=== PATIENT | female | born 1975 | race Caucasian/White ===

== ENCOUNTER 2018-05-25 14:00 | Observation (INO) | payer OTHER, SELFPAY ==
[2018-05-25] VITALS (8 sets, daily range): BP systolic 101–132; BP diastolic 55–71; PULSE 78–97; RESP 16–20; TEMP 36.7–37.6; O2SAT 95–100; BMI 22.3
[2018-05-25 15:37] LABS: Anion Gap 8 (5-15); BUN 13 mg/dL (7-18); BUN/Creat Ratio 22.3 RATIO (10-20); Calcium,Total 8.6 mg/dL (8.5-10.1); Chloride 107 mmol/L (98-107); Creatinine, Serum 0.58 mg/dL (0.55-1.02); EST Glomerular Filtration Rate 119 mL/min (>60); Est Glom Filt Rate - Afr Amer 144 mL/min (>60); Estimated Creatinine Clearance 106.89 ml/min; Glucose 86 mg/dL (74-106); Potassium 3.7 mmol/L (3.5-5.1); Sodium Level 137 mmol/L (136-145)
[2018-05-25] MEDS: Lactated Ringers 1,000 ML 100 ML IV (16:20)
[2018-05-25] MEDS: DiphenhydrAMINE 50 MG/ML Syringe IV (17:36)
--- NOTE | 2018-05-25 18:01 | HP.PCM_ITS ---
- Problem List (1) Menorrhagia Status: Acute (2) Fibroid uterus Status: Chronic Qualifiers: Uterine leiomyoma location: intramural, submucous, and subserous Qualified Code(s): D25.1 - Intramural leiomyoma of uterus; D25.0 - Submucous leiomyoma of uterus; D25.2 - Subserosal leiomyoma of uterus (3) Chronic blood loss anemia Status: Chronic History and Physical Date of Admission: 05/25/18 Date: 05/25/2018 Name: TYLER CALDERON Age: 43 Date of : 1975 HISTORY OF PRESENT ILLNESS: On 05/25/2018, Tyler Calderon, a 43 year old female 1 0 1 1 2, presented for: -- US [employer] -- Tyler is here for evaluation of irregular and heavy bleeding. She noted more bleeding with menses being longer, irregular, and heavy in January. Started feeling much worse 3 weeks ago and made appt for evaluation. Saw PCP yesterday and Hgb 6.0 g/dl. Started a chelated iron 18 mg tablet once daily approx 1 month ago. Encouraged to increase that to bid at minimum. Discussed may get offered transfusion and hysterectomy. Will discuss all further with Dr Marino. LMT -- Heavy menses which began approx 1 year. Tyler claims it started in January and has been present for 5 months. It is located in the uterus. Severity is mild. An associated sign and symptom is severe anemia. As above. Here for pelvic sono and evaluation. She has had heavy bleeding and irregular periods since January 2018. Had scheduled appt for tomorrow to discuss Robotic hysterectomy, but here today as work in for ultrasound and to arrange for blood transfusion as PCP ordered labs earlier this week and her Hgb is 6 g/dl. Estradiol and progesterone both premenopausal. She had not had any PROFESSIONAL [employer]ER[employer] evaluation for years. NO recent sono but today's. She is not on any medications. Prior h/o vaginal delivery of twins-- 5- 5 1/2 # each. No pelvic or abdominal surgeries. Sono results reviewed as below: Advised hysterectomy. UTERUS: 14.8 x 8.5 x 13 cm with multiple fibroids seen. 1)4.9 x 6.6 x 6.6cm 2)6.7 x 4.2 x 4.4cm 3) 5.6 x 5 x 3cm and 5.8 x 7.2 x 6.3cm. ENDOMETRIAL ECHO: 35 mm. irregular echoes seen within. thick and irregular endo RIGHT OVARY: not seen. LEFT OVARY: 4.1 x 3.8 x 3.5cm. simple cyst seen measures 3.6 x 3 x 3cm. FREE FLUID: NONE. IMPRESSION/PLAN fibroids seen in uterus, thickened endometrium blood seen in endo. irregular echotexture seen in uterus and enlarged uterus. limited views of uterus due to enlarged fibroids. clusters of old blood seen throughout uterus. EB ALLERGIES: Sudafed and Tachycardia MEDICATIONS HISTORY: None REVIEW OF SYSTEMS: GENERAL - Denies fever, or chills SKIN - Denies skin changes EYES - Denies visual changes EARS - Denies difficulty hearing NOSE - Denies nasal congestion or bleeding MOUTH - Denies sore throat or difficulty swallowing NECK - Denies pain or swelling RESPIRATORY - Denies shortness of breath or wheezing CARDIOVASCULAR - Denies palpitations or chest pain GASTROINTESTINAL - Denies nausea, vomiting, diarrhea, constipation GENITOURINARY - heavy menses MUSCULOSKELETAL - Denies joint or muscle pain NEUROLOGICAL - Denies localized numbness or weakness PSYCHIATRIC - Denies depression or anxiety ENDOCRINE - Denies heat or cold intolerance, weight loss or gain HEMATO-IMMUNOLOGIC - Denies excesive bleeding with cuts PAST HISTORY: Breast/Ovarian/Colon Cancers - Denies Infections - Chicken pox Illnesses - no serious past illnesses Accidents - no injuries of consequence History of Abnormal PAPS - Denies Hospitalizations - see surgery SURGICAL HISTORY: 1. 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 HEENT - Normocephalic, PERRLA, EOMI NECK - no nodes, no nuchal rigidity and thyroid normal size and texture ABDOMEN - Palpable mutinodular uterus, somewhat mobile. not fixed in pelvis EXTREMITIES - No edema or calf tenderness NEUROLOGICAL - Cranial nerves II-XII grossly intact PSYCHIATRIC - A and O to time, place, person, mood and affect DETAILED PELVIC EXAM External Genitial Vagina - non-tender without lesions Urethra/Urethral Meatus - non-tender Bladder - non-tender Vagina - vaginal arevalo are pink and moist without loss of rugae and no evidence of atropy Cervix - gr 2 prolapse. and minimal bleeding at present. Uterus - enlarged with multiple palpable nodularities noted. Pedunculated fibroids serosal fibroids. 15-16 cm size on exam. Somewhat limited mobility Adnexa - clear without massess or tenderness Pap - deferred ASSESSMENT: 1. Leiomyoma Of Uterus, Unspecified 2. Iron Deficiency Anemia Secondary To Blood Loss (chronic) 3. Excessive Bleeding In The Premenopausal Period PLAN BY DIAGNOSIS: 1. Excessive Bleeding In The Premenopausal Period and Iron Deficiency Anemia Secondary To Blood Loss (chronic) Hgb at outside facility 6 g/dl. Advised blood transfusion and to be admitted today to [facility] for this and overnight observation. Plan 4 unit transfusion to hgb goal prior to surgery of 10 g/dl. May continue iron and will inc to bid. The visit was approximately 25 minutes in length with most of the time spent in discussion and counseling. 2. Leiomyoma Of Uterus, Unspecified Mutiple fibroids noted Advised that the endometrium is very thickened also with areas of blood. Less likely a malignancy given body habitus, but endometrium thickness potentially due to blood within the endometrium, clots. Advised hysterectomy. Cervix with slight prolapse noted. Due to shape of uterus recommend LAVH, and Bilateral salpingectomy Advised potential need for open procedure, ODALYS. Declines bilateral oophorectomy. Prefers to maintain ovaries. Reviewed R,B,A and discussed anticipated preop, operative and postop recovery including activity restrictions. All questions answered. Will schedule surgery for later this week, after blood transfusion today and over night hospital stay for this transfusion.
[2018-05-25] MEDS: Ferrous Sulfate 325 MG Tablet PO (18:23)
[2018-05-26] VITALS (10 sets, daily range): BP systolic 105–128; BP diastolic 62–79; PULSE 71–86; RESP 14–18; TEMP 36.8–37.3; O2SAT 95–100
--- NOTE | 2018-05-26 07:54 | PCM.PROGNOTE ---
Patient Problems: Active and Suspected Problems Menorrhagia (Acute) Subjective: HD#2 Chronic blood loss anemia, Fibroid uterus Doing OK. Poor sleep overnight with protocol for blood. On 4th unit now. Asking about timing of hysterectomy Two pads used overnight. No heavy bleeding. Tolerating blood well. Objective: Sitting up in bed, ready for coloring book activity - Physical Exam General: Alert, Oriented x3, Cooperative, No apparent distress HEENT: Atraumatic Neck: Supple Neurological: Cranial nerves II-XII grossly intact Psych/Mental Status: Normal Affect Vital Signs Temp Pulse Resp BP Pulse Ox 99.1 F 86 18 105/72 99 05/26/18 06:35 05/26/18 06:35 05/26/18 06:35 05/26/18 06:35 05/26/18 06:35 Oxygen Delivery Method Room Air Weight: 58.922 kg Body Mass Index (BMI) 22.3 Intake and Output for Last 24 Hours 05/24/18 05/25/18 05/26/18 23:59 23:59 23:59 Intake Total 550 / 550 4450 / 4450 Output Total 650 / 650 1100 / 1100 Balance -100 / -100 3350 / 3350 Laboratory Tests Past 24 Hrs 05/25/18 05/25/18 14:54 14:54 Sodium 137 Potassium 3.7 Chloride 107 Carbon Dioxide 22.0 Anion Gap 8 BUN 13 Creatinine 0.58 Estim Creat Clear Calc 106.89 Est GFR (MDRD) Af Amer 144 Est GFR (MDRD) Non-Af 119 BUN/Creatinine Ratio 22.3 H Glucose 86 Calcium 8.6 Blood Type A POSITIVE Antibody Screen NEGATIVE Crossmatch See Detail Medical Necessity - Tobacco Use Smoking Status: Never smoker Assessment/Plan All Active Problems Menorrhagia (Acute) HD#2 Overnight observation 2/2 chronic blood loss anemia Transfusion of 4 units pRBCs in prep for hysterectomy CBC planned apprx 4 h p 4th unit LAVH, bilateral salpingectomy planned for Thursday am Reviewed R,B,A of this surgery. Leaving ovaries in place. Potential for ODALYS also reviewed. Plan dischg home after CBC today , if stable, with surgery planned on Thursday.
--- NOTE | 2018-05-26 07:58 | PCM.DC ---
- Discharge Diagnoses Current Active Problems: Current Active and Chronic Problems Menorrhagia (Acute) Fibroid uterus (Chronic) Chronic blood loss anemia (Chronic) You will use the following diet at home:: No restrictions Discharge Activity: May Shower, May Take a Tub Bath May resume sexual activity in: No Restrictions Call your doctor if you observe: Fever of 101 or Higher, Using more than one pad per hour Allergies/Adverse Reactions: Allergies pseudoephedrine Adverse Reaction (Verified 05/25/18 14:19) heart races Medications to take at Discharge Calcium Citrate/Magnesium/D3 [Calcium Citrate Chewable Wafer] 1 each PO DAILY 05/25/18 Chelated Iron 18 mg PO DAILY 05/25/18 Fish Oil/Borage/Flax/Om3,6,9#1 [[place] 3-6-9 Complex Softgel] 400 mg PO DAILY 05/25/18 Multivitamin [Multiple Vitamins] 1 each PO DAILY 05/25/18 Vitamin B Complex 1 each PO DAILY 05/25/18 Primary Care Physician: Felipe Wilson [Primary Care Provider] - Test Results: Test results from this visit will be discussed in further detail at your follow-up appointment, if applicable. Please Follow Up With: Low Jolly MD When: Thursday am as planned at [facility] for surgery. Proposed Discharge Date: 05/26/18
[2018-05-26] MEDS: Ferrous Sulfate 325 MG Tablet PO (08:53)
[2018-05-26] MEDS: Multivitamins,Therapeutic Tablet 1 TABLET PO (08:53)
[2018-05-26 12:38] LABS: Absolute Lymphocyte Count 1.42 X10^3/ul (0.83-4.51); Absolute Neutrophil Count 4.5 X10^3/uL (2.0-7.7); Basophil# 0.04 X10^3/uL; Basophil% 0.6 % (0-1); Eosinophil# 0.05 X10^3/uL; Eosinophils% 0.8 % (0-5); Hematocrit 38.9 % (37-47); Hemoglobin 11.4 g/dl (12.0-15.0); Lymphocyte # 1.42 X10^3/ul (4.0); Lymphocyte % 21.4 % (19-41); Mean Corp Hgb Conc 29.3 g/gl (32-36); Mean Corpuscular Hgb 22.8 pg (27.0-32.0); Mean Corpuscular Volume 77.8 fL (81-99); Mean Platelet Vol. 11.6 fl (6.2-12.0); Monocyte# 0.59 X10^3/uL; Monocyte% 8.9 % (0-10); Neutrophil # 4.53 X10^3/uL (2.7-7.7); Neutrophil % 68.1 % (47-70); POSITIVE COUNT NO; POSITIVE DIFFERENTIAL NO; POSITIVE MORPHOLOGY NO; Platelet Count 280 K/mm3 (150-450); RBC Distribution Width CV 17.5 % (11.6-14.6); RBC Distribution Width SD 48.2 fl (35.1-43.9); White Blood Count 6.6 K/mm3 (4.4-11.0)
== END 2018-05-26 15:48 | disposition home or self-care (01) ==
PROVIDERS: Admitting Provider Obstetrics & Gynecology; Family Provider Preventive Medicine Public Health & General Preventive Medicine; PCP Preventive Medicine Public Health & General Preventive Medicine; Referring Provider Obstetrics & Gynecology; Visit Provider Obstetrics & Gynecology
DX: N92.1 Excessive and frequent menstruation with irregular cycle (principal); D25.1 Intramural leiomyoma of uterus; D25.0 Submucous leiomyoma of uterus; D25.2 Subserosal leiomyoma of uterus; D50.0 Iron deficiency anemia secondary to blood loss (chronic)
CPT/HCPCS: 36415; 36430; 80048; 85025; 86850; 86900; 86920; 86922; 96360; 96361; 99218; J7040; J7120; P9016; A4216; G0378; G0379

== ENCOUNTER 2018-05-28 11:42 | Inpatient (IN) | payer OTHER, SELFPAY ==
--- NOTE | 2018-05-27 17:09 | HP.PCM_ITS ---
History and Physical Date of Admission: 05/28/18 Surgical History and Physical Debra Doyle, a 43 year old female 1 0 1 1 2, presents for LAVH, bilateral salpingectomy on 05/28/18 at 0930. -- Multiple Uterine Fibroids; Blood Loss Anemia -- Irregular and heavy bleeding. She noted more bleeding with menses being longer, irregular, and heavy in January. Started feeling much worse 3 weeks ago and made appt for evaluation. Saw PCP and Hgb 6.0. Started a chelated iron 18 mg tablet once daily approx 1 month ago. Encouraged to increase that to bid at minimum. After transfusion earlier this week Hgb up to 11+ with 4 units P-RBC. UTERUS: 14.8 x 8.5 x 13cm. multiple fibroids seen. 1)4.9 x 6.6 x 6.6cm 2)6.7 x 4.2 x 4.4cm 3) 5.6 x 5 x 3cm and 5.8 x 7.2 x 6.3cm. Heavy menses which began approx 1 year. Debra claims it started in January and has been present for 5 months. It is located in the uterus. Severity is mild; Associated signs and symptoms are severe anemia. MEDICATIONS HISTORY: ALLERGIES: Pseudopherin, Increased heart rate, Sudafed and Tachycardia Infections - Chicken pox Illnesses - no serious past illnesses Accidents - no injuries of consequence Hospitalizations - see surgery Review of Systems: GENERAL - Denies fever, or chills SKIN - Denies skin changes EYES - Denies visual changes EARS - Denies difficulty hearing NOSE - Denies nasal congestion or bleeding MOUTH - Denies sore throat or difficulty swallowing NECK - Denies pain or swelling RESPIRATORY - Denies shortness of breath or wheezing CARDIOVASCULAR - Denies palpitations or chest pain GASTROINTESTINAL - Denies nausea, vomiting, diarrhea, constipation GENITOURINARY - heavy menses MUSCULOSKELETAL - Denies joint or muscle pain NEUROLOGICAL - Denies localized numbness or weakness PSYCHIATRIC - Denies depression or anxiety ENDOCRINE - Denies heat or cold intolerance, weight loss or gain HEMATO-IMMUNOLOGIC - Denies excesive bleeding with cuts SOCIAL HISTORY: Alcohol Use - denies drinking Smoking - denies smoking Diet - balanced Diet Lifestyle - Exercise - minimal Seat Belt Use - always 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 none PHYSICAL EXAM BP- 144/72 Sitting, Right arm, regular cuff Weight- 129.35889 lbs Height- 64 inch BMI:22.19 CONSTITUTIONAL - well nourished, well developed and Extremely pale appearing. HEENT - Normocephalic, PERRLA, EOMI NECK - no nodes, no nuchal rigidity and thyroid normal size and texture ABDOMEN - Palpable mutinodular uterus, somewhat mobile. not fixed in pelvis EXTREMITIES - No edema or calf tenderness NEUROLOGICAL - Cranial nerves II-XII grossly intact PSYCHIATRIC - A and O to time, place, person, mood and affect External Genitial Vagina - non-tender without lesions Urethra/Urethral Meatus - non-tender Bladder - non-tender Vagina - vaginal arevalo are pink and moist without loss of rugae and no evidence of atropy Cervix - gr 2 prolapse. and minimal bleeding at present. Uterus - enlarged with multiple palpable nodularities noted. Pedunculated fibroids serosal fibroids. 15-16 cm size on exam. Somewhat limited mobility Adnexa - clear without massess or tenderness Pap - deferred ASSESSMENT/PLAN: 1. Excessive Bleeding In The Premenopausal Period and Iron Deficiency Anemia Secondary To Blood Loss (chronic) Hgb at outside facility 6 g/dl. Advised blood transfusion and was admitted to [facility] for this and overnight observation. 4 unit transfusion to hgb goal prior to surgery of 10 g/dl. Continue iron and will inc to bid. 2. Leiomyoma Of Uterus, Unspecified Mutiple fibroids noted Advised hysterectomy. Cervix with slight prolapse noted. Due to shape of uterus , recommend trial of LAVH, Bilateral salpingectomy Advised potential need for open, ODALYS. Declines bilateral oophorectomy. Prefers to maintain ovaries. Reviewed R,B,A and discussed anticipated preop, operative and postop recovery including activity restrictions. All questions answered.
[2018-05-28] VITALS (13 sets, daily range): BP systolic 105–140; BP diastolic 60–83; PULSE 50–80; RESP 11–16; TEMP 36.3–38.2; O2SAT 100; BMI 21.2; BMI 22.6
--- NOTE | 2018-05-28 | HYST_PTH ---
PATIENT: TYLER CALDERON LOC: MS3 U#:[id number] AGE/SX: 43/F ROOM: MS320 RE05/28/[address]: Dr. Low Jolly MD : 1975 BED: 1 DIS: 05/30/2018 SPEC #: [id number] RECD: 05/28/18 14:30 STATUS: TAVON REQ #: [id number] RAY: 05/28/18 00:[address]: Low Jolly DEPT: SURGICAL PATHOLOGY RECD BY: Zain Johnson ENTERED: 05/28/18 14:30 SP TYPE: HYSTERECT OTHR DR: Dr. Felipe Wilson MD Tissues: Uterus, NOS Procedures: Surgery Specimen Level V HEADER OPERATION: Attempted lap assisted vaginal hysterectomy, bilateral salpingo-oophorectomy PRE-OP DIAGNOSIS: Excessive bleeding in premenopausal period, leiomyoma of uterus TISSUE SUBMITTED: Uterus and bilateral fallopian tubes MICROSCOPIC DIAGNOSIS Uterus, bilateral fallopian tubes and ovaries, vaginal hysterectomy and bilateral salpingo-oophorectomy: Cervix - acute and chronic cystic cervicitis. Endometrium - secretory endometrium. Myometrium - intramural, submucosal and subserosal leiomyomas (largest measuring 7 cm in greatest dimension). - Focal subserosal adenomyosis. Bilateral fallopian tubes and ovaries - endometriosis. - Physiologic follicular and hemorrhagic corpus luteum cysts. SJ:kathia 05/31/18 COMMENT Detached piece of tissue is consistent with hemorrhagic corpus luteum cyst and shows focal area of endometriosis. MICROSCOPIC DESCRIPTION Slides are reviewed. GROSS DESCRIPTION Received in fixative is one container labeled with the patient's name and designated uterus and bilateral fallopian tubes. The specimen consists of a hysterectomy specimen consisting of uterus with cervix, detached bilateral fallopian tubes and possible ovaries. The uterus with cervix weighs 1223 gm. The uterus is markedly distorted due to the presence of nodular masses. The uterus with cervix measures from fundus to cervix 18 cm, 23 cm between two cornu and 12 cm anterior-posteriorly. The serosal surface is hughes, glistening. The ectocervical mucosa is focally congested. The external os is oval and patulous in contour. The endocervical canal measures 3.5 cm in length and the endocervical mucosa is hughes, glistening and unremarkable. The endocervical mucosa is filled with liquified and clotted blood. The endometrial cavity is saucer shaped and distorted and compressed to one side and measures 9 cm in length and up to 8 cm in width. The endometrium is hughes, glistening without any mass lesion and measures up to 0.2 cm in thickness. Sections of the uterine wall reveal multiple intramural, submucosal and subserosal nodular masses. The largest mass measures 7 cm in greatest dimension. Sections of these masses reveal hughes whorled cut surfaces without areas of hemorrhage, necrosis or cystic degeneration. The uninvolved uterine wall measures up to 3 cm in thickness. The detached fallopian tube and ovary are not identified as right or left. The fallopian tube measures 5 cm in length and up to 1.5 cm in diameter. The fimbrial end is not identified. One of the fallopian tubes reveal multiloculated cut surfaces. The adjacent possible ovary measures 5 x 3 x 2 cm. Sections reveal a hemorrhagic cyst measuring 1.5 cm in greatest dimension. Additional cysts are also noted filled with clear fluid. The second fallopian tube and ovary is disrupted and no well-defined fallopian tube or ovary could be identified. The entire tubo-ovarian tissue measures 6 x 4.5 x 2 cm. The fimbrial end is not identified. Sections do not reveal any obvious mass lesion. Also present in the container is a detached piece of hughes soft tissue measuring 1.5 x 2 x 0.7 cm. Food Specialist sections are submitted in 18 cassettes as follows: 1 & 2 - cervix, 3-6 - uterine wall including endometrium, 7 - largest nodular mass, 8 - second largest nodular mass, 9 - third largest nodular mass, 10 & 11 - possible one fallopian tube, 12 & 13 - possible adjacent ovary, 14-17 - second fallopian tube and ovary, 18 - detached piece of tissue. / Tejal 05/28/18 TC: 1 CPT: 27880
[2018-05-28 08:33] LABS: Internal QC Validated? YES +Cl - CLEAR BKGD; Pregnancy, Urine Negative Negative
[2018-05-28 08:52] LABS: Prothrombin Time (Protime)PT. 13.5 SECONDS (11.7-14.9)
[2018-05-28 08:53] LABS: Partial Thromboplast Time 26.4 Seconds (24.1-36.2)
[2018-05-28 08:55] LABS: Hematocrit 40.5 % (37-47); Hemoglobin 11.5 g/dl (12.0-15.0)
[2018-05-28] MEDS: Ropivacaine 0.5% 30 ML Vial (11:43)
--- NOTE | 2018-05-28 11:54 | OP.PCM_ITS ---
Operative Report Date of Procedure: 05/28/18 Surgeon: Low Jolly MD, [facility] OG Shift Production Associate: KARL Saba; KARL Alva Anesthesia: Elena Gibbs CRNA Type of anesthesia: General endotracheal Procedure: Attempted Laparoscopic-Assisted Vaginal Hysterectomy Bilateral Salpingectomy converted to Total Abdominal Hysterectomy, Bilateral Salpingo- Oophorectomy and Lysis of Adhesions Findings: 15 cm cm fibroid uterus with approximately 5-6 cm hydrosalpinx and 4 cm endometrioma/tubo-ovarian complex each adnexa. Adhesion of rectosigmoid to left tubo-ovarian complex. Indications: This is a 43-year-old 2 para 2 who his been having problems with extremely heavy periods. Her hemoglobin was noted to be 6.0 before being transfused with 4 units of packed red blood cells earlier this week. Extremely large uterine fibroids were noted. Given this the patient desires that we proceed with the above procedure. She has been counseled regarding the risk and indications of this procedure including the possibility of bleeding, infection, and injury to surrounding structures such as bowel bladder. She also understands that the procedure may need to be converted to open if unable to proceed laparoscopically. She desires ovarian preservation if ovaries appear normal. All questions were answered. Procedure: Patient was taken to the operating room where after induction of general anesthesia she was placed in the dorsal lithotomy position and prepped and draped in the usual sterile fashion. A Andino catheter was placed. Anterior cervix was grasped with a tenaculum and anterior cervix circumscribed with cautery on a setting of 35 W coagulation. Anterior vaginal mucosa was undermined and a 4 x 4 raytec sponge was placed to identify the peritoneal reflection of the bladder intraperitoneally. Conn cannula was placed and attention was turned towards the laparoscopic portion of the procedure. Approximately 10 cc of half percent ropivacaine was injected 2 cm above the umbilicus and 3 cm below the umbilicus. A 5 mm bladeless trocar was introduced 2 cm above the umbilicus and intraperitoneal placement confirmed. CO2 insufflation was completed, and, under direct visualization, a 5 mm bladeless trocar was introduced just below the umbilicus. The above findings were noted and because of the recto-sigmoid adhesions, large fibroids, and bilateral adnexal masses it was decided to proceed with open procedure. Patient was undraped and vaginal instruments were removed; patient was prepped and draped in usual sterile fashion after removing her from the dorsal lithotomy position. The 2 previous 5 mm ports were removed and a Pfannenstiel incision was made after closing the 2 ports with 4-0 monocryl suture in an interrupted fashion and covering with Steri-Strips. Upon entering the abdomen it was not possible to place the [place] retractor so uterus was brought through the incision to the upper field from the pelvis and round ligaments were identified and ligated with 0 Vicryl suture. Progressive bites were then taken down on either side of the uterine cervix ligating each pedicle with 0 Vicryl suture. The fallopian tubes and ovaries were left in place at this portion of the procedure. After removing the uterus from the vaginal cuff the angles were closed with Royal sutures using 0 Vicryl suture and multiple [id number] sutures using 0 Vicryl suture was placed across the vaginal cuff. Vaginal cuff and pelvic sidewall pedicles were oversewn where necessary to achieve hemostasis. Attention was turned toward removing the tubo-ovarian complexes. Using blunt and sharp dissection the fallopian tubes and ovaries were freed from the pelvic sidewall and the infundibulopelvic ligaments were ligated x2 with 0 Vicryl suture. Similar procedure was carried out on each side but on the right but the ovary was noted to be buried behind the peritoneum. This was removed with blunt dissection and after removal peristalsis of the right ureter was noted. FloSeal 5 cc was used to help with hemostasis after copiously irrigating the pelvis with saline. Tammy retractor was removed and rectus abdominis muscles were reapproximated in the midline with interrupted 0 Vicryl suture. 0 PDS strata fix was used to close the fascia in a running fashion and subcutaneous tissue was copiously irrigated with saline solution before closing with 3-0 Vicryl suture. 3-0 Monocryl suture was then used in running fashion to reapproximate skin edges area and Steri-Strips placed across the incision. Patient tolerated the procedure well was taken to recovery room in satisfactory condition; sponge instrument and needle counts were all reportedly correct. Estimated blood loss for the case was 400 cc. Cefotan 2 g IV was given prior to beginning the operative procedure. There were no apparent complications of the surgery. Specimen to pathology was uterus and bilateral fallopian tubes and ovaries.
--- NOTE | 2018-05-28 13:22 | PCM.DC.AHY ---
Discharge Diet: No Restrictions Discharge Activity: Return to Normal Activity - do what you feel comfortable, but do not over do it. You may climb stairs, just use caution and hold the railing., May Not Drive - for a few days or while taking narcotic pain medications., May Shower, May Take a Tub Bath May resume sexual activity in: 6 weeks - nothing in the vagina. Lifting Restrictions: 25 pounds for 6 weeks. Call your doctor if your incision/area has: Continuous Slow Oozing, Sudden Increased Bleeding, Increased Pain/ Swelling, Increased Redness, Foul Smelling Discharge Call your doctor if you observe: Fever of 101 or Higher, Inability to urinate, Inability to have a bowel movement, Using more than one pad per hour, - - Some vaginal bleeding may be noted for up to 4-8 weeks. Cleanse incision/area with: - - Let the soapy water run over your incision, rinse and pat dry. Additional Dressing/Incision Instructions:: The white strips (Steri Strips) on your incision will fall off on their own. Allergies/Adverse Reactions: Allergies pseudoephedrine Adverse Reaction (Verified 05/27/18 10:36) heart races Medications to take at Discharge Calcium Citrate/Magnesium/D3 [Calcium Citrate Chewable Wafer] 1 each PO DAILY 05/25/18 Chelated Iron 18 mg PO DAILY 05/25/18 Fish Oil/Borage/Flax/Om3,6,9#1 [[place] 3-6-9 Complex Softgel] 400 mg PO DAILY 05/25/18 Multivitamin [Multiple Vitamins] 1 each PO DAILY 05/25/18 Vitamin B Complex 1 each PO DAILY 05/25/18 Docusate Sodium [Colace] 100 mg PO BID PRN PRN #60 cap 05/28/18 Estradiol 1 mg PO DAILY #100 tab 05/28/18 Oxycodone [Oxyir] 5 mg PO Q6H PRN PRN 7 Days #20 tab 05/28/18 The following prescriptions were given: Oxycodone [Oxyir] 5 mg PO Q6H PRN PRN 7 Days #20 tab PRN Reason: Severe Pain (-05/12) Docusate Sodium [Colace] 100 mg PO BID PRN PRN #60 cap PRN Reason: Constipation Estradiol 1 mg PO DAILY #100 tab Primary Care Physician: Felipe Wilson [Primary Care Provider] - Test Results: Test results from this visit will be discussed in further detail at your follow-up appointment, if applicable. Please Follow Up With: Low Jolly MD - [phone] When: in 2 weeks, please call to make an appointment.
[2018-05-28] MEDS: Ketorolac 30 MG/ML Syringe IV ×2 (13:46→19:02)
[2018-05-28] MEDS: Lactated Ringers 1,000 ML 125 ML IV ×2 (13:48→21:33)
[2018-05-28] MEDS: 0.9% NaCl Peripheral Flush Adult/Peds IV ×2 (17:02→19:02)
[2018-05-28] MEDS: HYDROmorphone 0.5 MG/0.5 ML SYRINGE IV ×2 (17:03→22:56)
[2018-05-28] MEDS: Enoxaparin 30 MG/0.3 ML Syringe SC (19:02)
[2018-05-28] MEDS: oxyCODONE 5 MG Tablet PO (20:15)
[2018-05-28] MEDS: Ondansetron 4 MG/2 ML Vial IV (21:29)
[2018-05-29] VITALS (9 sets, daily range): BP systolic 90–119; BP diastolic 52–80; PULSE 55–89; RESP 16–18; TEMP 36.3–37.5; O2SAT 97–100
[2018-05-29] MEDS: Ketorolac 30 MG/ML Syringe IV ×5 (00:15→23:53)
[2018-05-29] MEDS: oxyCODONE 5 MG Tablet PO ×3 (02:23→19:44)
[2018-05-29] MEDS: Lactated Ringers 1,000 ML 125 ML IV (05:53)
[2018-05-29 07:27] LABS: Creatinine, Serum 0.79 mg/dL (0.55-1.02); EST Glomerular Filtration Rate 84 mL/min (>60); Est Glom Filt Rate - Afr Amer 102 mL/min (>60); Estimated Creatinine Clearance 85.07 ml/min
[2018-05-29 08:22] LABS: Hematocrit 33.2 % (37-47); Hemoglobin 9.4 g/dl (12.0-15.0); Mean Corp Hgb Conc 28.3 g/gl (32-36); Mean Corpuscular Hgb 22.5 pg (27.0-32.0); Mean Corpuscular Volume 79.4 fL (81-99); Mean Platelet Vol. 11.7 fl (6.2-12.0); Platelet Count 214 K/mm3 (150-450); RBC Distribution Width CV 19.6 % (11.6-14.6); RBC Distribution Width SD 55.6 fl (35.1-43.9); Red Blood Count 4.18 M/mm3 (4.2-5.4); Scan Indicated on CBC? Y/N YES- FLAGS NOTED; White Blood Count 9.2 K/mm3 (4.4-11.0)
--- NOTE | 2018-05-29 08:40 | PCM.PN.OB ---
Subjective: Patient without complaints. Tolerating diet well. Denies flatus. Pain well controlled. Would like to go home later today if able. - Physical Exam Vital Signs AF, VSS Temp Pulse Resp BP Pulse Ox 97.4 F L 77 16 119/66 100 05/29/18 02:07 05/29/18 02:15 05/29/18 02:07 05/29/18 02:07 05/29/18 02:07 Oxygen Flow Rate (L/min) 1 Oxygen Delivery Method Nasal Cannula Weight: 140 lb Body Mass Index (BMI) 22.6 Intake and Output for Last 24 Hours 05/27/18 05/28/18 05/29/18 23:59 23:59 23:59 Intake Total 2892 / 2892 2228 / 2228 Output Total 420 / 420 1355 / 1355 Balance 2472 / 2472 873 / 873 Laboratory Tests Past 24 Hrs 05/28/18 05/28/18 05/28/18 08:30 08:30 08:30 WBC RBC Hgb 11.5 L Hct 40.5 MCV MCH MCHC RDW RDW Differential Plt Count MPV PT 13.5 INR 1.0 APTT 26.4 Creatinine Estim Creat Clear Calc Est GFR (MDRD) Af Amer Est GFR (MDRD) Non-Af Blood Type A POSITIVE Antibody Screen NEGATIVE 05/29/18 05/29/18 06:47 06:47 WBC 9.2 RBC 4.18 L Hgb 9.4 L Hct 33.2 L MCV 79.4 L MCH 22.5 L MCHC 28.3 L RDW 19.6 H RDW Differential 55.6 H Plt Count 214 MPV 11.7 PT INR APTT Creatinine 0.79 Estim Creat Clear Calc 85.07 Est GFR (MDRD) Af Amer 102 Est GFR (MDRD) Non-Af 84 Blood Type Antibody Screen Wound is clean, dry, intact. Good urine output. Hemoglobin and creatinine okay. Minimal vaginal bleeding. Medical Necessity - Tobacco Use Smoking Status: Never smoker Tobacco Use: Non-smoker Assessment/Plan All Active Problems Menorrhagia (Acute) Doing well postoperative day #1 status post ODALYS/BSO. Home-going instructions given. Will release later today or tomorrow if good progress continues and there is demonstration of bowel function.
[2018-05-29 08:42] LABS: Differential Comment SCANNED
[2018-05-29] MEDS: Estrogens,Conj. 0.625 MG Tablet PO (08:55)
[2018-05-29] MEDS: Docusate Sodium 100 MG Capsule PO (08:59)
[2018-05-29] MEDS: 0.9% NaCl Peripheral Flush Adult/Peds IV ×3 (11:48→23:54)
--- NOTE | 2018-05-29 11:51 | CPS ---
Pt. reported that she was reaching values of 1000 for IS early, but when time of instruction pt.told me she had a agitated hernia that was decreasing her volumes for IS. Will continue to work with pt. later in the afternoon to ensure good volumes. 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
[2018-05-29] MEDS: Acetaminophen 500 MG Tablet 1000 MG PO ×2 (14:44→22:35)
[2018-05-30 02:04] VITALS: BP 102/56; PULSE 65; RESP 16; TEMP 36.9; O2SAT 98
[2018-05-30] MEDS: oxyCODONE 5 MG Tablet PO ×2 (02:14→11:55)
[2018-05-30] MEDS: Docusate Sodium 100 MG Capsule PO (06:30)
[2018-05-30] MEDS: Ketorolac 10 MG Tablet PO ×2 (06:30→11:24)
[2018-05-30 07:02] VITALS: O2SAT 95
[2018-05-30 07:27] VITALS: BP 107/71; PULSE 67; RESP 16; TEMP 36.9; O2SAT 100
--- NOTE | 2018-05-30 07:42 | PCM.PN.OB ---
Subjective: No issues overnight. No flatus or bowel movement yet. Tolerates a regular diet. No chest pain, shortness of breath, palpitations. Abdominal pain well controlled 08/12 Objective: AVSS - Physical Exam General: Alert, Oriented x3, Cooperative, No apparent distress HEENT: Atraumatic, Normocephalic Lungs: Clear to auscultation, Normal air movement, No rhonchi, No wheeze, No rales Cardiovascular: Regular rate, Regular Rhythm, Normal S1, Normal S2 Abdomen: Soft, Non Tender, Non-Distended Extremities: No edema, No Calf Tenderness Neurological: Neuro grossly intact Psych/Mental Status: Normal Affect, Appropriate, Alert and oriented to time, place, person, mood and affect Vital Signs Temp Pulse Resp BP Pulse Ox 98.5 F 67 16 107/71 100 05/30/18 07:27 05/30/18 07:27 05/30/18 07:27 05/30/18 07:27 05/30/18 07:27 Oxygen Flow Rate (L/min) 1 Oxygen Delivery Method Room Air Weight: 63.503 kg Body Mass Index (BMI) 22.6 Intake and Output for Last 24 Hours 05/28/18 05/29/18 05/30/18 23:59 23:59 23:59 Intake Total 2892 / 2892 2598 / 2598 800 / 800 Output Total 420 / 420 1705 / 1705 1700 / 1700 Balance 2472 / 2472 893 / 893 -900 / -900 Laboratory Tests Past 24 Hrs 05/29/18 05/30/18 06:47 06:50 WBC 9.2 Pending RBC 4.18 L Pending Hgb 9.4 L Pending Hct 33.2 L Pending MCV 79.4 L Pending MCH 22.5 L Pending MCHC 28.3 L Pending RDW 19.6 H Pending RDW Differential 55.6 H Pending Plt Count 214 Pending MPV 11.7 Differential Comment SCANNED Medical Necessity - Tobacco Use Smoking Status: Never smoker Tobacco Use: Non-smoker Assessment/Plan All Active Problems Menorrhagia (Acute) 43yo POD#2 s/p laparoscopy converted to ODALYS, BSO doing well. -No flatus yet, however no evidence of ileus and tolerates PO. -f/u CBC pending -Plan for d/c home pending CBC results -Reviewed home incision care
--- NOTE | 2018-05-30 07:47 | PCM.DC.AHY ---
Discharge Diet: No Restrictions, - - Eat low protein diet Discharge Activity: Return to Normal Activity - do what you feel comfortable, but do not over do it. You may climb stairs, just use caution and hold the railing., May Not Drive - for a few days or while taking narcotic pain medications., May Shower, May Take a Tub Bath May shower in (days): 0 May resume sexual activity in: 6 weeks - nothing in the vagina. Lifting Restrictions: 10 lb Call your doctor if your incision/area has: Continuous Slow Oozing, Sudden Increased Bleeding, Increased Pain/ Swelling, Increased Redness, Foul Smelling Discharge Call your doctor if you observe: Fever of 101 or Higher, Inability to urinate, Inability to have a bowel movement, Using more than one pad per hour, Chest pain, Calf discomfort, Uncontrolled pain, - - Some vaginal bleeding may be noted for up to 4-8 weeks. Suture Line Care: Avoid Pulling/Pushing Cleanse incision/area with: - - Let the soapy water run over your incision, rinse and pat dry. Additional Dressing/Incision Instructions:: The white strips (Steri Strips) on your incision will fall off on their own or remove on Thursday after wetting. Allergies/Adverse Reactions: Allergies pseudoephedrine Adverse Reaction (Verified 05/28/18 14:11) heart races Medications to take at Discharge Calcium Citrate/Magnesium/D3 [Calcium Citrate Chewable Wafer] 1 each PO DAILY 05/25/18 Chelated Iron 18 mg PO DAILY 05/25/18 Fish Oil/Borage/Flax/Om3,6,9#1 [[place] 3-6-9 Complex Softgel] 400 mg PO DAILY 05/25/18 Multivitamin [Multiple Vitamins] 1 each PO DAILY 05/25/18 Vitamin B Complex 1 each PO DAILY 05/25/18 Docusate Sodium [Colace] 100 mg PO BID PRN PRN #60 cap 05/28/18 Estradiol 1 mg PO DAILY #100 tab 05/28/18 Oxycodone [Oxyir] 5 mg PO Q6H PRN PRN 7 Days #20 tab 05/28/18 The following prescriptions were given: Oxycodone [Oxyir] 5 mg PO Q6H PRN PRN 7 Days #20 tab PRN Reason: Severe Pain (-05/12) Docusate Sodium [Colace] 100 mg PO BID PRN PRN #60 cap PRN Reason: Constipation Estradiol 1 mg PO DAILY #100 tab Primary Care Physician: Felipe Wilson [Primary Care Provider] - Test Results: Test results from this visit will be discussed in further detail at your follow-up appointment, if applicable. Please Follow Up With: Low Jolly MD - [phone] When: in 5-7 days, please call to make an appointment.
[2018-05-30 08:08] LABS: Hematocrit 33.3 % (37-47); Hemoglobin 9.3 g/dl (12.0-15.0); Mean Corp Hgb Conc 27.9 g/gl (32-36); Mean Corpuscular Hgb 22.9 pg (27.0-32.0); Mean Platelet Vol. 12.2 fl (6.2-12.0); Platelet Count 214 K/mm3 (150-450); RBC Distribution Width CV 20.3 % (11.6-14.6); RBC Distribution Width SD 59.2 fl (35.1-43.9); Red Blood Count 4.06 M/mm3 (4.2-5.4); White Blood Count 5.8 K/mm3 (4.4-11.0)
[2018-05-30 08:11] LABS: Scan Indicated on CBC? Y/N YES- FLAGS NOTED
[2018-05-30 08:48] LABS: Differential Comment SCANNED
[2018-05-30] MEDS: Estrogens,Conj. 0.625 MG Tablet PO (09:51)
--- NOTE | 2018-05-30 13:07 | PCM.DC.SUM ---
Discharge Date and Diagnosis Date of Admission: 05/28/18 Date of Discharge: 05/30/18 - Secondary Discharge Diagnosis Chronic Problems Fibroid uterus (Chronic) Chronic blood loss anemia (Chronic) Hospital Course and Treatment Operations: - - Total abdominal hysterectomy, bilateral salpingectomy Summary of Care Provided: The patient is a 43 year old F with history of menorrhagia with anemia requiring blood transfusion admitted for scheduled hysterectomy. She underwent laparoscopy converted to abdominal hysterectomy with bilateral salpingo-oophorectomy. Her post-operative course was uncomplicated and she was discharged to home on post-operative day #2. - Physical Exam Vital Signs Temp Pulse Resp BP Pulse Ox 98.5 F 67 16 107/71 100 05/30/18 07:27 05/30/18 07:27 05/30/18 07:27 05/30/18 07:27 05/30/18 07:27 Oxygen Flow Rate (L/min) 1 Oxygen Delivery Method Room Air Weight: 63.503 kg Body Mass Index (BMI) 22.6 Intake and Output for Last 24 Hours 05/28/18 05/29/18 05/30/18 23:59 23:59 23:59 Intake Total 2892 / 2892 2598 / 2598 800 / 800 Output Total 420 / 420 1705 / 1705 1700 / 1700 Balance 2472 / 2472 893 / 893 -900 / -900 Laboratory Tests Past 24 Hrs 05/30/18 06:50 WBC 5.8 RBC 4.06 L Hgb 9.3 L Hct 33.3 L MCV 82.0 MCH 22.9 L MCHC 27.9 L RDW 20.3 H RDW Differential 59.2 H Plt Count 214 MPV 12.2 H Differential Comment SCANNED Discharge Diet: No Restrictions, - - Eat low protein diet Discharge Activity: Return to Normal Activity - do what you feel comfortable, but do not over do it. You may climb stairs, just use caution and hold the railing., May Not Drive - for a few days or while taking narcotic pain medications., May Shower, May Take a Tub Bath May shower in (days): 0 May resume sexual activity in: 6 weeks - nothing in the vagina. Call your doctor if your incision/area has: Continuous Slow Oozing, Sudden Increased Bleeding, Increased Pain/ Swelling, Increased Redness, Foul Smelling Discharge Call your doctor if you observe: Fever of 101 or Higher, Inability to urinate, Inability to have a bowel movement, Using more than one pad per hour, Chest pain, Calf discomfort, Uncontrolled pain, - - Some vaginal bleeding may be noted for up to 4-8 weeks. Suture Line Care: Avoid Pulling/Pushing Cleanse incision/area with: - - Let the soapy water run over your incision, rinse and pat dry. Additional Dressing/Incision Instructions:: The white strips (Steri Strips) on your incision will fall off on their own or remove on Thursday after wetting. Home Medications: Medications to take at Discharge Calcium Citrate/Magnesium/D3 [Calcium Citrate Chewable Wafer] 1 each PO DAILY 05/25/18 Chelated Iron 18 mg PO DAILY 05/25/18 Fish Oil/Borage/Flax/Om3,6,9#1 [[place] 3-6-9 Complex Softgel] 400 mg PO DAILY 05/25/18 Multivitamin [Multiple Vitamins] 1 each PO DAILY 05/25/18 Vitamin B Complex 1 each PO DAILY 05/25/18 Docusate Sodium [Colace] 100 mg PO BID PRN PRN #60 cap 05/28/18 Estradiol 1 mg PO DAILY #100 tab 05/28/18 Oxycodone [Oxyir] 5 mg PO Q6H PRN PRN 7 Days #20 tab 05/28/18 Following Prescrptions Were Given to Patient: Oxycodone [Oxyir] 5 mg PO Q6H PRN PRN 7 Days #20 tab PRN Reason: Severe Pain (-05/12) Docusate Sodium [Colace] 100 mg PO BID PRN PRN #60 cap PRN Reason: Constipation Estradiol 1 mg PO DAILY #100 tab Primary Care Physician: Felipe Wilson [Primary Care Provider] - Please Follow Up With: Low Jolly MD - [phone] When: in 5-7 days, please call to make an appointment. Medical Necessity - Tobacco Use Smoking Status: Never smoker Tobacco Use: Non-smoker Meaningful Use Info Meaningful Use Diagnoses (Choose all that apply): None applicable
--- NOTE | 2018-05-30 13:14 | DS.PCM_ITS ---
Discharge Date and Diagnosis Date of Admission: 05/28/18 Date of Discharge: 05/30/18 - Secondary Discharge Diagnosis Chronic Problems Fibroid uterus (Chronic) Chronic blood loss anemia (Chronic) Hospital Course and Treatment Operations: - - Total abdominal hysterectomy, bilateral salpingectomy Summary of Care Provided: The patient is a 43 year old F with history of menorrhagia with anemia requiring blood transfusion admitted for scheduled hysterectomy. She underwent laparoscopy converted to abdominal hysterectomy with bilateral salpingo-oophorectomy. Her post-operative course was uncomplicated and she was discharged to home on post- operative day #2. - Physical Exam Vital Signs Temp Pulse Resp BP Pulse Ox 98.5 F 67 16 107/71 100 05/30/18 07:27 05/30/18 07:27 05/30/18 07:27 05/30/18 07:27 05/30/18 07:27 Oxygen Flow Rate (L/min) 1 Oxygen Delivery Method Room Air Weight: 63.503 kg Body Mass Index (BMI) 22.6 Intake and Output for Last 24 Hours 05/28/18 05/29/18 05/30/18 23:59 23:59 23:59 Intake Total 2892 / 2892 2598 / 2598 800 / 800 Output Total 420 / 420 1705 / 1705 1700 / 1700 Balance 2472 / 2472 893 / 893 -900 / -900 Laboratory Tests Past 24 Hrs 05/30/18 06:50 WBC 5.8 RBC 4.06 L Hgb 9.3 L Hct 33.3 L MCV 82.0 MCH 22.9 L MCHC 27.9 L RDW 20.3 H RDW Differential 59.2 H Plt Count 214 MPV 12.2 H Differential Comment SCANNED Discharge Diet: No Restrictions, - - Eat low protein diet Discharge Activity: Return to Normal Activity - do what you feel comfortable, but do not over do it. You may climb stairs, just use caution and hold the railing., May Not Drive - for a few days or while taking narcotic pain medications., May Shower, May Take a Tub Bath May shower in (days): 0 May resume sexual activity in: 6 weeks - nothing in the vagina. Call your doctor if your incision/area has: Continuous Slow Oozing, Sudden Increased Bleeding, Increased Pain/ Swelling, Increased Redness, Foul Smelling Discharge Call your doctor if you observe: Fever of 101 or Higher, Inability to urinate, Inability to have a bowel movement, Using more than one pad per hour, Chest pain, Calf discomfort, Uncontrolled pain, - - Some vaginal bleeding may be noted for up to 4-8 weeks. Suture Line Care: Avoid Pulling/Pushing Cleanse incision/area with: - - Let the soapy water run over your incision, rinse and pat dry. Additional Dressing/Incision Instructions:: The white strips (Steri Strips) on your incision will fall off on their own or remove on Thursday after wetting. Home Medications: Medications to take at Discharge Calcium Citrate/Magnesium/D3 [Calcium Citrate Chewable Wafer] 1 each PO DAILY 05/25/18 Chelated Iron 18 mg PO DAILY 05/25/18 Fish Oil/Borage/Flax/Om3,6,9#1 [[place] 3-6-9 Complex Softgel] 400 mg PO DAILY 05/25/18 Multivitamin [Multiple Vitamins] 1 each PO DAILY 05/25/18 Vitamin B Complex 1 each PO DAILY 05/25/18 Docusate Sodium [Colace] 100 mg PO BID PRN PRN #60 cap 05/28/18 Estradiol 1 mg PO DAILY #100 tab 05/28/18 Oxycodone [Oxyir] 5 mg PO Q6H PRN PRN 7 Days #20 tab 05/28/18 Following Prescrptions Were Given to Patient: Oxycodone [Oxyir] 5 mg PO Q6H PRN PRN 7 Days #20 tab PRN Reason: Severe Pain (-05/12) Docusate Sodium [Colace] 100 mg PO BID PRN PRN #60 cap PRN Reason: Constipation Estradiol 1 mg PO DAILY #100 tab Primary Care Physician: Felipe Wilson [Primary Care Provider] - Please Follow Up With: Low Jolly MD - [phone] When: in 5-7 days, please call to make an appointment. Medical Necessity - Tobacco Use Smoking Status: Never smoker Tobacco Use: Non-smoker Meaningful Use Info Meaningful Use Diagnoses (Choose all that apply): None applicable
[2018-05-30 13:15] VITALS: BP 125/70; PULSE 76; RESP 16; TEMP 36.9; O2SAT 99
== END 2018-05-30 14:30 | disposition home or self-care (01) | DRG 743 ==
LOC: SDC 11:52 → MS3 05-31 07:21
PROVIDERS: Anesthesiology; Obstetrics & Gynecology; Admitting Provider Obstetrics & Gynecology; PCP Preventive Medicine Public Health & General Preventive Medicine; Referring Provider Obstetrics & Gynecology; Visit Provider Obstetrics & Gynecology
PROC: 0UT9FZZ Resection of Uterus, Via Natural or Artificial Opening With Percutaneous Endoscopic Assistance (ICD-10-PCS; principal; 2018-05-28 09:05)
DX: D25.9 Leiomyoma of uterus, unspecified (principal); D50.0 Iron deficiency anemia secondary to blood loss (chronic); Z53.31 Laparoscopic surgical procedure converted to open procedure
CPT/HCPCS: 36415; 81025; 82565; 85014; 85018; 85027; 85610; 85730; 86850; 86900; 88307; J7120; A4216; J2405